=== PATIENT | male | born 2000 | race Caucasian/White ===

== ENCOUNTER 2019-07-24 08:36 | Emergency (ER) | payer OTHER ==
[2019-07-24 08:57] LABS: ABS Eosinophils 0.4 10^3/ul (0-0.6); ABS Monocytes 0.8 10^3/ul (0-0.8); ABS Neutrophils 3.9 10^3/ul (1.5-7.7); Eosinophil % 5.3 %; Hematocrit 49 % (42-52); Hemoglobin 16.2 g/dL (14.0-18.0); Lymphocyte % 36.7 %; Mean Corpuscular HGB Conc 33 g/dL (31-36); Mean Corpuscular Hemoglobin 29 pg (27-31); Mean Corpuscular Volume 85 fL (80-94); Mean Platelet Volume 8.8 fL (7.4-10.4); Nucleated Red Blood Cells % 0.1; Platelet Count 238 10^3/uL (150-450); Red Cell Distribution Width 14 % (10-15); White Blood Count 8.2 10^3/uL (3.5-10.8)
--- NOTE | 2019-07-24 09:04 | ED ---
HPI Chest Pain - HPI Summary HPI Summary: The patient is a 19 y/o M presenting to [facility] with a chief complaint of sudden onset mid-sternal chest tightness this morning when he woke up. He reports that he had felt the pain while lying in bed, and he thought it was just from sleeping, but when he stood up, he had blurred vision and was unable to see well. The pain persisted as a soreness, similar to what he would feel at the gym if he pulled a muscle. However, he states he hasnt been to the gym in a few days so he doesnt think he strained himself. The pain is currently rated 3/ 10 in severity, and deep breathing seems to make the pain worse and laying down makes it better. He denies any diaphoresis, nausea, or vomiting. He denies any recent travel or sicknesses. PMHx: none. FHx: no cardiac. Nonsmoker, rare EtOH, no substance use. Medications reviewed. Allergies noted. - History of Current Complaint Chief Complaint: EDChestPainROMI Time Seen by Provider: 07/24/19 08:42 Hx Obtained From: Patient Onset/Duration: Started Minutes Ago, Still Present Timing: Lasting Minutes Initial Severity: Moderate Current Severity: Mild Pain Intensity: 3 Pain Scale Used: 0-10 Numeric Chest Pain Location: Mid Sternal Chest Pain Radiates: No Character: Tightness, Other: - soreness Aggravating Factor(s): Deep Breaths Alleviating Factor(s): Rest Associated Signs and Symptoms: Positive: Chest Pain, Shortness of Breath, Other : - blurred vision. Negative: Dizziness, Diaphoresis, Nausea, Vomiting - Allergy/Home Medications Allergies/Adverse Reactions: Allergies Allergy/AdvReac Type Severity Reaction Status Date / Time No Known Allergies Allergy Verified 07/24/19 08:46 Home Medications: Home Medications NK [No Home Medications Reported] 07/24/19 [History Confirmed 07/24/19] PMH/Surg Hx/FS Hx/Imm Hx Endocrine/Hematology History: Denies: Hx Diabetes Cardiovascular History: Denies: Hx Hypercholesterolemia, Hx Hypertension Respiratory History: Denies: Hx Asthma Sensory History: Denies: Hx Legally Blind, Hx Deafness Opthamlomology History: Denies: Hx Legally Blind EENT History: Denies: Hx Deafness - Surgical History Surgical History: None Surgery Procedure, Year, and Place: none Infectious Disease History: No Infectious Disease History: Denies: Traveled Outside the [place] in Last 30 Days - Family History Known Family History: Positive: Other - cancer Negative: Cardiac Disease, Hypertension - Social History Alcohol Use: Rare Hx Substance Use: No Substance Use Type: Reports: None Hx Tobacco Use: No Smoking Status (MU): Never Smoked Tobacco Review of Systems Negative: Skin Diaphoresis Positive: Blurred Vision Positive: Chest Pain - mid-sternal soreness Negative: Vomiting, Nausea Neurological: Other - Negative: dizziness All Other Systems Reviewed And Are Negative: Yes Physical Exam - Summary Physical Exam Summary: VITAL SIGNS: Reviewed. GENERAL: Patient is a well-developed and nourished male who is lying comfortable in the stretcher. Patient is not in any acute respiratory distress. HEAD AND FACE: No signs of trauma. No ecchymosis, hematomas or skull depressions. No sinus tenderness. EYES: PERRLA, EOMI x 2, No injected conjunctiva, no nystagmus. EARS: Hearing grossly intact. Ear canals and tympanic membranes are within normal limits. MOUTH: Oropharynx within normal limits. NECK: Supple, trachea is midline, no adenopathy, no JVD, no carotid bruit, no c- spine tenderness, neck with full ROM. CHEST: Symmetric, no tenderness at palpation. LUNGS: Clear to auscultation bilaterally. No wheezing or crackles. CVS: Regular rate and rhythm, S1 and S2 present, no murmurs or gallops appreciated. ABDOMEN: Soft, non-tender. No signs of distention. No rebound, no guarding, and no masses palpated. Bowel sounds are normal. EXTREMITIES: FROM in all major joints, no edema, no cyanosis or clubbing. NEURO: Alert and oriented x 3. No acute neurological deficits. Speech is normal and follows commands. SKIN: Dry and warm. Triage Information Reviewed: Yes Vital Signs On Initial Exam: Initial Vitals Temp Pulse Resp BP Pulse Ox 97.9 F 56 20 139/77 100 07/24/19 08:42 07/24/19 08:42 07/24/19 08:42 07/24/19 08:42 07/24/19 08:42 Vital Signs Reviewed: Yes Procedures - Sedation Patient Received Moderate/Deep Sedation with Procedure: No Diagnostics - Vital Signs Vital Signs Temp Pulse Resp BP Pulse Ox 07/24/19 08:42 97.9 F 56 20 139/77 100 - Laboratory Result Diagrams: 07/24/19 08:48 07/24/19 08:48 Lab Statement: Any lab studies that have been ordered have been reviewed, and results considered in the medical decision making process. - Radiology Chest X-Ray Radiology Interpretation Completed By: Radiologist Summary of Radiographic Findings: Impression: No active cardiopulmonary disease. ED physician has reviewed this report. - EKG 0834 Cardiac Rate: NL - 65 bpm EKG Rhythm: Sinus Rhythm Summary of EKG Findings: EKG at 0834 reveals NSR at [address] elevations. ED physician has reviewed and interpreted this EKG. Re-Evaluation - Re-Evaluation First Eval Re-Evaluation Time: 11:26 Change: Improved Comment: His pain has resolved. We discussed results and plan for discharge home. Chest Pain Course/Dx - Course Assessment/Plan: Patient is a 19 y/o M with chief complaint of sudden onset mid- sternal chest tightness and soreness accompanied by blurred vision with standing this morning, worsening with deep breathing. Blood work without a significant abnormality except for glucose of 116 and CPK of 338. Troponin 0.01. EKG is a normal sinus rhythm without any ST elevations. Chest x-ray impression: No active cardiopulmonary disease. The ED course the patient was given Toradol, and the symptoms improved. At this time the patient will be discharged home with follow-up with primary care physician. Heart to score is equal to 1. Patient reports that all symptoms have resolved. Because the patient has no significant comorbidities and no family history of cardiovascular disease at his age the patient will be discharged home with follow up of PMD. I discussed all the findings and test results with the patient. Patient was instructed to return to the emergency room immediately if any of the symptoms return or worsen. Patient understands and agrees. Plan of care was discussed with the patient and patient understands and agrees. All questions were answered at patient satisfaction. There were no further complaints or concerns. PE before discharge: CVS: S1 and S2 present. No murmurs appreciated. Abdominal exam before discharge: Soft, non-tender. No signs of distention. No rebound, no guarding, and no masses palpated. Bowel sounds are normal. Patient is alert and oriented x 3. Patient is hemodynamically stable. - Diagnoses Provider Diagnoses: Chest pain Discharge ED - Sign-Out/Discharge Documenting (check all that apply): Patient Departure - Patient will be discharged home. - Discharge Plan Condition: Stable Disposition: HOME Patient Education Materials: Chest Pain (DC) Referrals: [facility] - Corby NOLAND [Primary Care Provider] - 3 Days Additional Instructions: Follow up with your primary care provider in 2-3 days. Return to the emergency department for any new or worsening symptoms. - Billing Disposition and Condition Condition: STABLE Disposition: Home - Attestation Statements Document Initiated by Huang: Yes Documenting Scribe: Tyesha Yang Provider For Whom Huang is Documenting (Include Credential): Dr. Aston Kiser MD Scribe Attestation: Tyesha Tamez scribed for Dr. Aston Kiser MD on 07/24/19 at 1852. Scribe Documentation Reviewed: Yes Provider Attestation: The documentation as recorded by the Tyesha hutchins accurately reflects the service I personally performed and the decisions made by me, Dr. Aston Kiser MD Status of Scribe Document: Ready
[2019-07-24 09:12] LABS: INR 1.03 (0.82-1.09)
[2019-07-24 09:13] LABS: Albumin 4.9 g/dL (3.2-5.2); Calcium 9.6 mg/dL (8.6-10.3); Magnesium 2.1 mg/dL (1.9-2.7); Potassium 3.8 mmol/L (3.5-5.0); Total Bilirubin 0.3 mg/dL (0.2-1.0)
[2019-07-24 09:19] LABS: BUN/Creatinine Ratio 16.3 (8-20); EGFR African American 110.2 (>60); Globulin 2.5 g/dL (2-4); Total Protein 7.4 g/dL (6.4-8.9)
[2019-07-24 09:30] LABS: Troponin I 0.01 ng/mL (<0.04)
[2019-07-24 09:32] LABS: CKMB ng/mL 2.5 ng/mL (0.6-6.3)
[2019-07-24] MEDS ORDERED: Ketorolac INJ* 30 MG/ML 1 ML VIAL IV PUSH ONE (10:59)
[2019-07-24 11:51] VITALS: BP 129/72
== END 2019-07-24 11:50 | disposition home or self-care (01) ==
LOC: ED 08:36
DX: R07.9 Chest pain, unspecified (principal)
CPT/HCPCS: 36415; 71045; 80053; 82550; 82553; 83605; 83735; 83880; 84484; 85025; 85610; 93005; 96374; 99284; J1885